=== PATIENT | male | born 1950 | race Caucasian/White ===

== ENCOUNTER 2016-12-15 05:17 | Day surgery (SDC) | payer MEDICARE, BC ==
[~2016-12-15] VITALS: Ht 188 cm; Wt 95.7 kg
--- NOTE | ~2016-12-15 | OP ---
PATIENT NAME: CHUYITA COOMBS MEDICAL RECORD: [id number] :48 LOCATION:D.[facility] ADMISSION DATE: SURGEON: ADI YANES MD DATE OF OPERATION: 12/15/2016 PREOPERATIVE DIAGNOSES: 1. Gallstones. 2. Benign prostatic hypertrophy. POSTOPERATIVE DIAGNOSES: 1. Gallstones. 2. Benign prostatic hypertrophy. PROCEDURE: Laparoscopic cholecystectomy. SURGEON: Adi Yanes MD REPORT OF PROCEDURE: The patient's abdomen was prepped and draped in sterile fashion. A cutdown was made on the superior aspect of the umbilicus, 0 Vicryls were placed on the fascia bilaterally and the fascia was incised with 15-blade. I then bluntly entered the peritoneal cavity and placed a 12-mm Arianen port. Under direct visualization, a 5 mm trocar was placed in the epigastrium and 2 more 5-mm trocars were placed in the right subcostal region. The gallbladder was grasped and elevated. The cystic artery and cystic duct were dissected free and these were clipped proximally and distally and ligated in standard fashion. The gallbladder was then taken off the liver bed using electrocautery and placed in the right upper quadrant. The right upper quadrant was irrigated out and care was taken to make sure there was no sign of any bleeding from the liver bed. At this point, the ports and insufflation were then removed and the gallbladder was taken out through the umbilicus. The umbilical fascia was closed with interrupted 0 Vicryls times 4. The wounds were irrigated out with normal saline and infused with 10 mL of 0.25% Marcaine with epinephrine. The skin incisions were all closed with subcutaneous 5-0 Monocryl and dressed appropriately. COMPLICATIONS: None. CONDITION: Stable. ANESTHESIA: General endotracheal and local. BLOOD LOSS: Minimal. TRANSINT:[id number] Voice Confirmation ID: [id number] DOCUMENT ID: [id number] ADI YANES MD CC: DEB TINOCO MD [id number] DICTATION DATE: 12/15/16833 MANAGER DOMESTIC: 12/15/16 1602 [facility] 12/15/16 [facility] [address] [id number]
[~2016-12-15 05:17] MED LIST: ASPIRIN EC81 M1 PO; BIOTIN5 MG PO; CALCIUM 500 +1 EAC3 PO; DIOVAN80 MG PO; FLOMAX0.4 MG PO; GLUCOSAMINE & C1 CAP PO; MAGNESIUM OXID250 MG PO; MULTIPLE VITAMI1 TA1 PO; NIASPAN1000 MG PO; PAROXETINE HCL10 MG PO; PROSCAR5 MG PO; VITAMIN B-121000 MCG PO; VITAMIN D10000 UNI1 PO
[2016-12-15 05:52] VITALS: BP 127/68; Ht 188 cm; Wt 95.7 kg
[2016-12-15 06:12] LABS: BASOPHILS 0.6 % (0-2); EOSINOPHILS 8.1 % (0-7); HEMATOCRIT 39.3 % (42.0-54.0); HEMOGLOBIN 13.2 g/dL (13.5-17.5); IMMATURE GRANULOCYTES 0.4 % (0-5); LYMPHOCYTES 17.8 % (15-50); MCH 30.7 pg (26.0-34.0); MCHC 33.6 g/dL (31.0-37.0); MCV 91.4 fL (80.0-100.0); MEAN PLATELET VOLUME 10.1 fL (7.4-10.4); MONOCYTES 13.3 % (2-11); NEUTROPHILS 59.8 % (40-80); PLATELET COUNT 225 10x3/uL (130-400); WBC 5.3 10x3/uL (4.8-10.8)
[2016-12-15 06:29] LABS: ANION GAP 11.5 mmol/L (8-16); CALCIUM 9.1 mg/dL (8.5-10.1); CARBON DIOXIDE 25.8 mmol/L (21.0-32.0); CREATININE - SERUM 1.1 mg/dL (0.6-1.3); POTASSIUM - SERUM 4.3 mmol/L (3.5-5.1)
[2016-12-15] MEDS ORDERED: HYDROCODONE-APA1 TAB PO (08:30)
--- NOTE | 2016-12-15 13:37 | NUR ---
1215 DRESSED. GIVEN DISCHARGE INSTRUCTIONS INCLUDING: MED REC, RTC. APPT., RX FOR NORCO 10/325MG, OPS D/C INSTRUCTIONS, & [facility] DI FOR LAP CHOLECYSTECTOMY BY Ayesha CARDOZO R.N.. TO PRIVATE CAR PER WHEELCHAIR BY VOLUNTEER. HOME WITH . YelenaSandra PATTEN R.N.
== END 2016-12-15 12:15 | disposition home or self-care (01) ==
LOC: D.OPS 05:17 → D.PAN 07:30 → D.OPS 07:30
PROVIDERS: Surgery
DX: K80.10 Calculus of gallbladder with chronic cholecystitis without obstruction (principal); N40.0 Benign prostatic hyperplasia without lower urinary tract symptoms

== ENCOUNTER → 2017-08-20 08:03 | Outpatient (CLI) | payer MEDICARE, BC ==
[2016-12-15 05:52] VITALS: BMI 27.1
[~2017-08-20 08:03] MED LIST changes: +HYDROCODONE-APA1 TAB PO
== END | disposition home or self-care (01) ==
LOC: D.MRI 08:03
DX: G31.84 Mild cognitive impairment of uncertain or unknown etiology (principal); R26.9 Unspecified abnormalities of gait and mobility

== ENCOUNTER 2019-01-24 06:35 | Day surgery (SDC) | payer MEDICARE, BC ==
[~2019-01-24] VITALS: Ht 188 cm; Wt 96.6 kg
--- NOTE | ~2019-01-24 | OP ---
PATIENT NAME: CHUYITA COOMBS MEDICAL RECORD: [id number] :48 LOCATION:[facility] ADMISSION DATE: SURGEON: ADI YANES MD DATE OF OPERATION: 01/24/2019 PREOPERATIVE DIAGNOSES: 1. Ventral incisional hernia. 2. Hypertension. 3. Benign prostatic hypertrophy. POSTOPERATIVE DIAGNOSES: 1. Ventral incisional hernia. 2. Hypertension. 3. Benign prostatic hypertrophy. PROCEDURE: Ventral hernia repair with 6.4 cm Ventralight mesh. SURGEON: Adi Yanes MD REPORT OF PROCEDURE: The patient's abdomen was prepped and draped in sterile fashion. A cutdown was made in the midline just above the umbilicus. Electrocautery was used to dissect through the subcutaneous tissues. As we dissected through, we encountered a fat-containing hernia defect. I was able to push this fatty tissue back into the abdominal cavity. As we began dissecting this fatty tissue off of its lateral attachments to the fascial wall, then I was able to penetrate into the abdominal cavity and filled the anterior abdominal wall. At this point, I could feel there were actually 3 total defects present. Each one of them was about a centimeter in size. Two of the defects were in the midline, one of them being just superior to the umbilicus. The other one was just to the left of midline. I freed up the fascia on both sides using electrocautery until I could see the fascia clearly in all directions. Any hernia sac that was found was treated with electrocautery. We then removed the fascial bridge between the 2 midline hernia defects and inserted a 6.4 cm Ventralight mesh. This was sutured into place with interrupted 0 Prolenes times 4. There was good approximation of the tissues with this and it appeared to cover all 3 of the hernia defects appropriately. The wound was then irrigated out thoroughly with normal saline and care was taken to assure there was no sign of any bleeding. We then closed the midline fascial defect transversely using running 0 Vicryl and the left lateral defect was closed with a [id number] 0 Vicryl. We then inspected the wound. There was no sign of any bleeding. The patient's umbilicus was already affixed to the fascial surface, so no repairs had to be performed there. The midline subcutaneous tissues were reapproximated with multiple interrupted 3-0 Vicryl. We then infused 10 mL of 0.25% Marcaine with epinephrine to the surrounding tissues and closed the skin with running subcutaneous 5-0 Monocryl. COMPLICATIONS: None. CONDITION: Stable. ANESTHESIA: General endotracheal and local. BLOOD LOSS: Minimal. TRANSINT:[id number] Voice Confirmation ID: [id number] DOCUMENT ID: [id number] OPERATIVE REPORT [id number] CHUYITA COOMBS CHRISTIAN MD CC: DEB TINOCO [id number] DICTATION DATE: 01/24/19 1031 [employer] OPERATOR: 01/24/19 [id number] [place] [address]
[~2019-01-24 06:35] MED LIST changes: +WELLBUTRIN SR150 MG PO
[2019-01-24 07:08] LABS: BASOPHILS 0.6 % (0-2); EOSINOPHILS 6.8 % (0-7); HEMOGLOBIN 14.8 g/dL (13.5-17.5); IMMATURE GRANULOCYTES 0.3 % (0-5); LYMPHOCYTES 14.6 % (15-50); MCH 30.3 pg (26.0-34.0); MCHC 33.6 g/dL (31.0-37.0); MEAN PLATELET VOLUME 9.6 fL (7.4-10.4); MONOCYTES 10.2 % (2-11); NEUTROPHILS 67.5 % (40-80); PLATELET COUNT 228 10x3/uL (130-400); RBC 4.89 10x6/uL (4.20-6.10); WBC 7.1 10x3/uL (4.8-10.8)
[2019-01-24 07:38] LABS: ANION GAP 10.6 mmol/L (8-16); CALCIUM 8.6 mg/dL (8.5-10.1); CARBON DIOXIDE 28.8 mmol/L (21.0-32.0); CREATININE - SERUM 1.3 mg/dL (0.6-1.3); POTASSIUM - SERUM 4.4 mmol/L (3.5-5.1)
[2019-01-24] MEDS ORDERED: COZAAR25 MG PO (08:08)
[2019-01-24] MEDS ORDERED: GALZIN25 MG PO (08:12)
[2019-01-24] MEDS ORDERED: TURMERIC PO (08:14)
[2019-01-24 08:21] VITALS: BP 146/67; Ht 188 cm; Wt 96.6 kg
[2019-01-24] MEDS ORDERED: HYDROCODON-ACE1 EA10 PO (10:26)
--- NOTE | 2019-01-24 10:51 | NUR ---
IV NOT PATENT UPON ARRIVAL TO PACU. STEFANI DEVINE RN STARTED NEW IV IN LEFT FOREARM 22 GAUGE. NO REDNESS, NO INFILTRATION NOTED. IV PATENT. WILL CONTINUE TO MONITOR.
--- NOTE | 2019-01-24 14:53 | NUR ---
1342 IV DC'D. CATHETER INTACT. NO BLEEDING AT SITE. BANDAID APPLIED.
--- NOTE | 2019-01-24 14:55 | NUR ---
1400 LATE ENTRY: RECEIVED IN REPORT FROM SEPIDEH HUI THAT PT VOIDED IN URINAL WHILE IN PACU. PT AMBULATED TO BR AT 1330 AND VOIDED PRIOR TO DISCHARGE. BNC 2L WAS DC'D AT 1300 AND PT KEPT OXYGEN SATURATION AT 97-98% AND AT 98% AT DISCHARGE.
== END 2019-01-24 14:10 | disposition home or self-care (01) ==
LOC: D.OPS 06:35 → D.PAN 08:00 → D.OPS 08:00
PROVIDERS: ATTEND Surgery
DX: K43.2 Incisional hernia without obstruction or gangrene (principal); I10 Essential (primary) hypertension; N40.0 Benign prostatic hyperplasia without lower urinary tract symptoms; Z01.812 Encounter for preprocedural laboratory examination